=== PATIENT | female | born 1985 | race Caucasian/White ===

== ENCOUNTER → 2023-02-10 | Outpatient (CLI) | payer OTHER, SELFPAY ==
--- NOTE | 2023-02-10 13:05 | US_ITS ---
EXAM: US SOFT TISSUES HEAD AND NECK, THYROID CLINICAL INDICATION: GOITER TECHNIQUE: Greyscale and color doppler imaging was performed of the thyroid gland. COMPARISON: No relevant prior studies available. FINDINGS: LEFT THYROID LOBE: The left thyroid lobe measures 6.1 x 1.9 x 1.8 cm. There is a 1.1 cm left thyroid nodule. This nodule is solid or almost completely solid, hyperechoic or isoechoic, [id number], ill-defined and contains no echogenic foci. TI-RADS points: 3. TI-RADS category: TR3. This nodule is mildly suspicious but no FNA or follow-up is necessary given the small size of this nodule. There is a 0.6 cm left thyroid nodule. This nodule is solid or almost completely solid, hyperechoic or isoechoic, ijfij-kyuo-bzkp, smoothly marginated and contains no echogenic foci. TI-RADS points: 3. TI-RADS category: TR3. This nodule is mildly suspicious but no FNA or follow-up is necessary given the small size of this nodule. There is a 1.6 cm left thyroid nodule. This nodule is solid or almost completely solid, hyperechoic or isoechoic, [id number], ill-defined and contains no echogenic foci. TI-RADS points: 3. TI-RADS category: TR3. This nodule is mildly suspicious. Recommend follow-up thyroid ultrasounds at 1, 3 and 5 years. RIGHT THYROID LOBE: The right thyroid lobe measures 5.7 x 2.8 x 2.0 cm. There is a 1.1 cm right thyroid nodule. This nodule is solid or almost completely solid, hyperechoic or isoechoic, atnyy-[id number], ill-defined and contains no echogenic foci. TI-RADS points: 3. TI-RADS category: TR3. This nodule is mildly suspicious but no FNA or follow-up is necessary given the small size of this nodule. There is an additional 1.1 cm right thyroid nodule. This nodule is solid or almost completely solid, hyperechoic or isoechoic, [id number], ill-defined and contains no echogenic foci. TI-RADS points: 3. TI-RADS category: TR3. This nodule is mildly suspicious but no FNA or follow-up is necessary given the small size of this nodule. There is a 2.1 cm right thyroid nodule. This nodule is mixed cystic and solid, very hypoechoic, bndyg-bwme-[id number], smoothly marginated and contains no echogenic foci. TI-RADS points: 4. TI-RADS category: TR4. This nodule is moderately suspicious. Recommend FNA evaluation. There is a 1.7 cm right thyroid nodule. This nodule is solid or almost completely solid, hyperechoic or isoechoic, [id number]-[id number], ill-defined and contains no echogenic foci. TI-RADS points: 3. TI-RADS category: TR3. This nodule is mildly suspicious. Recommend follow-up thyroid ultrasounds at 1, 3 and 5 years. ISTHMUS: The thyroid isthmus measures 6 mm. There is an isthmus nodule measuring 7 mm. This nodule is solid or almost completely solid, hyperechoic or isoechoic, byprj-kinh-ecfh, ill-defined and contains no echogenic foci. TI-RADS points: 3. TI-RADS category: TR3. This nodule is mildly suspicious but no FNA or follow-up is necessary given the small size of this nodule. US/Thyroid IMPRESSION: 1. Thyroid goiter. 2. Recommend FNA of the 2.1 cm right-sided thyroid nodule 3. If definitive management is not performed, follow-up thyroid ultrasound at one, 3, and 5 years is recommended in relation to the 1.6 cm left-sided thyroid nodule and 1.7 cm right-sided nodule. Although many of the other nodules are mildly suspicious, no specific follow-up recommended is recommended based on the size of those nodules. Electronically Signed: Asif Sheets DO at 0:03 EST ,
== END | disposition home or self-care (01) ==
LOC: US 13:02
PROVIDERS: PCP Family Medicine; Visit Provider Family Medicine
DX: E04.2 Nontoxic multinodular goiter (principal)
CPT/HCPCS: 76536

== ENCOUNTER → 2023-04-07 | Outpatient (CLI) | payer OTHER, SELFPAY ==
--- NOTE | 2023-04-07 09:00 | FLU_PTH ---
PATHOLOGY RESULTS PATIENT: NAI LINDSEY LOC: LAB U#:[id number] AGE/SX: 37/F ROOM: RE04/07/[address]: Dr. Kannan Carrillo MD : [id number] BED: DIS: 04/07/2023 SPEC #: [id number] RECD: 04/07/23 13:48 STATUS: TONY JAI #: [id number] MARIA LUZ: 04/07/23 09:[address]: Kannan Carrillo DEPT: CYTOLOGY RECD BY: Deja Magana ENTERED: 04/10/23 09:27 SP TYPE: Fluid OTHR DR: Chika Ko DO Tissues: Thyroid gland, NOS Thyroid gland, NOS Thyroid gland, NOS Procedures: Special Stain Group II Surgery Specimen Level IV Cytospin Fluid Cytology Other HEADER OPERATION: Fine needle aspiration of right-sided thyroid nodule PRE-OP DIAGNOSIS: Right-sided thyroid nodule TISSUE SUBMITTED: A - Right thyroid nodule fluid, B - Right thyroid nodule fluid, C - Right thyroid nodule x4 slides DIAGNOSIS CYTOLOGY A. Right thyroid nodule fluid, fine needle aspiration (cytospin and cell block): Nondiagnostic specimen. (Kerkhoven Category I). Consistent with cyst contents. See comment. B. Right thyroid nodule fluid, fine needle aspiration (cytospin and cell block): Nondiagnostic specimen. (Kerkhoven Category I). See comment. C. Right thyroid nodule, fine needle aspiration (smears): Nondiagnostic specimen. (Kerkhoven Category I). See comment. SJ:luke 04/11/2023 COMMENT A. The specimen predominantly consists of macrophages. B. The specimen consists of a few macrophages. C. Adequate number of well-preserved follicular cells are not seen. Correlation with clinical, radiologic findings and appropriate follow up are necessary. Repeat FNA is suggested if clinically indicated. The Kerkhoven System for thyroid diagnostic categorization was used in the evaluation of this case. Case has been reviewed in consultation with Dr. Hoffman who concurs with the above diagnosis. IDC:AM CYTOLOGY STUDY Slides are reviewed. CYTOLOGY GROSS A - Received is 3 ml of red cloudy fluid labeled with the patient's name and and designated per the requisition as right thyroid nodule. Submitted for cytology preparation including cell block. B - Received is 30 ml of red cloudy fluid labeled with the patient's name and and designated per the requisition as right thyroid nodule. Submitted for cytology preparation including cell block. C - Received are four smears labeled with the patient's name and designated per the requisition as right thyroid nodule. Submitted for staining. / luke 04/10/2023 TC: cannot code CPT: 16176 x3, 96586 x2
--- OUTSIDE RECORDS SUMMARY | 2023-04-07 10:18 | XMS RPT_ITS | CCD ---
Author Name Unknown Address [address] [facility] [place] [address] Organization [facility] Care Team Providers Care Wire Repairer Name Role Phone Theodore NIÑO, Raeann Lopez Primary Care Provider Allergies Allergy Classification Reported Allergen(s) Allergy Type Date of Onset Reaction(s) Facility (7 sources) Sulfonamides (Antibiotic) Drug Allergy 2 Hives, Swelling [facility] Work Phone: (7 sources) Tetracycline Drug Allergy 2 Hives, Swelling [facility] Work Phone: Medications Current Medications Medication Drug Class(es) Dates Sig (Normalized) Sig (Original) cephalexin 500 mg oral capsule (1 source) Cephalosporin Antibacterial Start: 10-25-2021 End: 11-04-2021 take 1 capsule by mouth four times daily cephALEXin (KEFLEX) 500 mg capsule Indications: UTI symptoms , Bilateral non-suppurative otitis media Take 1 capsule by mouth four times daily for 10 days. 40 capsule 0 10/25/2021 11/04/2021 Active Completed/Discontinued Medications Medication Drug Class(es) Dates Sig (Normalized) Sig (Original) ciprofloxacin 250 mg oral tablet (1 source) Quinolone Antimicrobial Start: 10-25-2021 End: 10-25-2021 take 1 tablet by mouth twice daily ciprofloxacin HCl (CIPRO) 250 mg tablet Take 1 tablet by mouth twice daily for 3 days. 6 tablet 0 10/25/2021 10/25/2021 Discontinued Problems Problem Classification Problem Date Documented Date Episodic/Chronic Genitourinary symptoms and ill-defined conditions (1 source) Urinary symptoms ; Translations: [Unspecified symptoms and signs involving the genitourinary system] Episodic Nervous system congenital anomalies (7 sources) Neurofibromatosis type 1; Translations: [Neurofibromatosis, type 1] Onset: 06-24-2021 06-24-2021 Chronic Other nutritional; endocrine; and metabolic disorders (2 sources) H/O: thyroid disorder; Translations: [Personal history of other endocrine, nutritional and metabolic disease] Episodic Other screening for suspected conditions (not mental disorders or infectious disease) (4 sources) Patient encounter status; Translations: [Encounter for screening for lipoid disorders] Episodic Otitis media and related conditions (1 source) Non-suppurative otitis media; Translations: [Unspecified nonsuppurative otitis media, bilateral] Episodic Thyroid disorders (10 sources) Thyroid nodule; Translations: [Nontoxic single thyroid nodule] Onset: 06-24-2021 06-24-2021 Chronic Results Test Name Value Interpretation Reference Range Facil ity Vital Signs Date Time Vital Sign Value Performing Clinician Aba gallegos 10-25-2021 11:11-0400 Body temperature 97.7 [degF] Sierra Botello MILL SUPERVISOR.REAL PROPERTY APPRAISER Work Phone: [facility] 10-25-2021 11:11-0400 Body weight 87.09 kg Sierra Botello MILL SUPERVISOR.REAL PROPERTY APPRAISER Work Phone: [facility] 10-25-2021 11:11-0400 Diastolic blood pressure 70 mm[Hg] Sierra Botello MILL SUPERVISOR.REAL PROPERTY APPRAISER Work Phone: [facility] 10-25-2021 11:11-0400 Heart rate 90 /min Sierra Botello MILL SUPERVISOR.REAL PROPERTY APPRAISER Work Phone: [facility] 10-25-2021 11:11-0400 Respiratory rate 16 /min Sierra Botello MILL SUPERVISOR.REAL PROPERTY APPRAISER Work Phone: [facility] 10-25-2021 11:11-0400 SaO2% (BldA) [Mass fraction] 97 % Sierra Botello MILL SUPERVISOR.REAL PROPERTY APPRAISER Work Phone: [facility] 10-25-2021 11:11-0400 Systolic blood pressure 114 mm[Hg] Sierra Botello MILL SUPERVISOR.REAL PROPERTY APPRAISER Work Phone: [facility] 07-23-2021 13:59-0400 [facility].TURNING SANDER TENDER Work Phone: [facility] 07-23-2021 13:59-0400 Body weight 86.36 kg Jayde [place] MILL SUPERVISOR.TURNING SANDER TENDER Work Phone: [facility] 07-23-2021 13:59-0400 Diastolic blood pressure 60 mm[Hg] Jayde Sukumar MILL SUPERVISOR.TURNING SANDER TENDER Work Phone: [facility] 07-23-2021 13:59-0400 Systolic blood pressure 122 mm[Hg] Jayde Sukumar MILL SUPERVISOR.TURNING SANDER TENDER Work Phone: [facility] 06-24-2021 12:58-0400 Body weight 85.73 kg Sierra Botello MILL SUPERVISOR.REAL PROPERTY APPRAISER Work Phone: [facility] 06-24-2021 12:58-0400 Diastolic blood pressure 80 mm[Hg] Sierra Botello MILL SUPERVISOR.REAL PROPERTY APPRAISER Work Phone: [facility] 06-24-2021 12:58-0400 Heart rate 76 /min Sierra Botello MILL SUPERVISOR.REAL PROPERTY APPRAISER Work Phone: [facility] 06-24-2021 12:58-0400 Respiratory rate 16 /min Sierra Botello MILL SUPERVISOR.REAL PROPERTY APPRAISER Work Phone: [facility] 06-24-2021 12:58-0400 Systolic blood pressure 112 mm[Hg] Sierra Botello MILL SUPERVISOR.REAL PROPERTY APPRAISER Work Phone: [facility] Encounters Encounter Date Encounter Type Care Provider Facility Start: 10-25-2021 End: 10-25-2021 Patient encounter procedure Sierra Botello MILL SUPERVISOR.REAL PROPERTY APPRAISER Work Phone: [facility] Procedures Date Procedure Procedure Detail Performing Clinician Start: 10-25-2021 Urnls dip stick/tabl et rgnt auto w/o microscopy Sierra Botello MILL SUPERVISOR.REAL PROPERTY APPRAISER Work Phone: Start: 06-25-2021 Us soft tissue head & neck real time imge docm Sierra Botello APRN.RE[employer] PROPERTY APPRAISER Work Phone: Start: 06-24-2021 Adult depression screening assessment Sierra Botello APRN.REAL PROPERTY APPRAISER Work Phone: Plan of Treatment Date Care Activity Detail Author Start: 07-23-2026 HPV TESTING HPV TESTING [facility] Start: 07-23-2026 PAP TESTING PAP TESTING [facility] Start: 06-24-2022 Adult depression scr eening assessment DEPRESSION SCREENING [facility] Start: 06-24-2022 COVID-19 VACCINE (#1) COVID-19 VACCI NE (#1) [facility] Payers Date Payer Category Payer Private Health Insurance [employer] A ETNA CHOICE POS II [id number] 2021-Present [phone] [address] [place] [address] POS [id number] 2021 Private Health Insurance [employer] A ETNA CHOICE POS II [id number] 2021-Present [phone] [address] [place] [address] POS [id number] Social History Date Type Detail Facility Start: 06-24-2021 End: 10-25-2021 Tobacco smoking status NHIS Never smoked tobacco [facility] Work Phone: Start: 06-24-2021 End: 10-25-2021 Tobacco use and exposure Smokeless tobacco non-user [facility] Work Phone: Start: 06-24-2021 End: 10-25-2021 Alcohol intake Current drinker of alcohol (finding) [facility] Start: 06-24-2021 End: 10-25-2021 Alcohol intake [facility] Start: 1985 Sex Assigned At Not on file [facility] Start: 06-14-2021 End: 10-25-2021 Exposure to SARS-CoV-2 (event) Not sure [facility] Work Phone: Start: 1985 Sex Assigned At Female [facility] Clinical Notes 06-24-2021 to 10-25-2021 Sierra Botello APRN.REAL PROPERTY APPRAISER - 10/25/2021 11:15 AM EDTTelephone Encounter - Raina Monique RN - 10/05/2021 11:06 AM EDTTelephone Encounter - Raina Monique RN - 10/05/2021 10:08 AM EDT Note Date & Type Note Facility 10-25-2021 Note HNO ID: [id number] Author: Sierra Botello APRN.REAL PROPERTY APPRAISER Service: ? Author Type: Nurse Specialist Type: Progress Notes Filed: 10/25/2021 11:50 AM Note Text: SSUBJECTIVE: HEPATITIS B(1 of 3 - 3-dose series) Never done HPI Nai Nair is a 35 year old female. PMH significant for ACTIVE PROBLEM LIST Neurofibromatosis, Type 1 (Hcc) Multiple Thyroid Nodules Presents today regarding UTI symptoms. Dysuria:yes Urgency:yes Frequency:yes Separately reports children are all sick. She states she is checked her self for COVID with a home test and states she is negative. Notes bilateral ear pain. Currently without sore throat or other upper respiratory complaints. Review of Systems HENT: Positive for ear pain. Genitourinary: Positive for dysuria, frequency and urgency. Objective BP 114/70 Pulse 90 Temp 36.5 ?C (97.7 ?F) Resp 16 Wt 87.1 kg (192 lb) LMP 07/13/2021 SpO2 97% BMI 30.99 kg/m? Physical Exam Vitals and nursing note reviewed. Constitutional: Appearance: Normal appearance. HENT: Head: Normocephalic and atraumatic. Right Ear: Ear canal normal. Tympanic membrane is erythematous. Left Ear: Ear canal normal. Tympanic membrane is erythematous. Nose: Nose normal. Mouth/Throat: Lips: [place]. Mouth: Mucous membranes are moist. Pharynx: Oropharynx is clear. Eyes: Conjunctiva/sclera: Conjunctivae normal. Cardiovascular: Rate and Rhythm: Normal rate and regular rhythm. Heart sounds: Normal heart sounds. Pulmonary: Effort: Pulmonary effort is normal. Breath sounds: Normal breath sounds. Neurological: Mental Status: She is alert. ALLERGIES Allergen Reactions Sulfa (Sulfonamide * Hives, Swelling Tetracycline Hives, Swelling pseudoephed/acetaminophen/cpm (BOBBY-SELTZER PLUS COLD ORAL) Take by mouth. PAST MEDICAL HISTORY Diagnosis Date Neurofibromatosis, type 1 (HCC) Thyroid nodule Social History Tobacco Use Smoking status: Never Smokeless tobacco: Never Vaping Use Vaping Use: Never used Substance Use Topics Alcohol use: Yes Alcohol/week: 4.0 standard drinks Types: 4 Glasses of Wine (5oz) per week Drug use: Never ASSESSMENT/PLAN: 1. UTI symptoms - ICD9: 788.99, ICD10: R39.9 (primary diagnosis) - UA DIP, URINE (POC) - URINE CULTURE - CEPHALEXIN 500 MG CAPSULE 2. Bilateral non-suppurative otitis media - ICD9: 381.4, ICD10: H65.93 - CEPHALEXIN 500 MG CAPSULE She reports all of her children are sick. Unknown illness. She reports negative COVID test at home. Urinary symptoms. Endorse supportive care. We will treat with cephalexin which will cover both concerns. She will let us know if not feeling improved. Sierra Botello APRN.[facility] 10-25-2021 History of Presen t illness Narrative SSUBJECTIVE: HEPATITIS B(1 of 3 - 3-dose series) Never done HPI Nai Nair is a 35 year old female. PMH significant for ACTIVE PROBLEM LIST Neurofibromatosis, Type 1 (Hcc) Multiple Thyroid Nodules Presents today regarding UTI symptoms. Dysuria:yes Urgency:yes Frequency:yes Separately reports children are all sick. She states she is checked her self for COVID with a home test and states she is negative. Notes bilateral ear pain. Currently without sore throat or other upper respiratory complaints. Review of Systems HENT: Positive for ear pain. Genitourinary: Positive for dysuria, frequency and urgency. Objective BP 114/70 Pulse 90 Temp 36.5 C (97.7 F) Resp 16 Wt 87.1 kg (192 lb) LMP 07/13/2021 SpO2 97% BMI 30.99 kg/m Physical Exam Vitals and nursing note reviewed. Constitutional: Appearance: Normal appearance. HENT: Head: Normocephalic and atraumatic. Right Ear: Ear canal normal. Tympanic membrane is erythematous. Left Ear: Ear canal normal. Tympanic membrane is erythematous. Nose: Nose normal. Mouth/Throat: Lips: [place]. Mouth: Mucous membranes are moist. Pharynx: Oropharynx is clear. Eyes: Conjunctiva/sclera: Conjunctivae normal. Cardiovascular: Rate and Rhythm: Normal rate and regular rhythm. Heart sounds: Normal heart sounds. Pulmonary: Effort: Pulmonary effort is normal. Breath sounds: Normal breath sounds. Neurological: Mental Status: She is alert. ALLERGIES Allergen Reactions Sulfa (Sulfonamide * Hives, Swelling Tetracycline Hives, Swelling pseudoephed/acetaminophen/cpm (BOBBY-SELTZER PLUS COLD ORAL) Take by mouth. PAST MEDICAL HISTORY Diagnosis Date Neurofibromatosis, type 1 (HCC) Thyroid nodule Social History Tobacco Use Smoking status: Never Smokeless tobacco: Never Vaping Use Vaping Use: Never used Substance Use Topics Alcohol use: Yes Alcohol/week: 4.0 standard drinks Types: 4 Glasses of Wine (5oz) per week Drug use: Never ASSESSMENT/PLAN: 1. UTI symptoms - ICD9: 788.99, ICD10: R39.9 (primary diagnosis) - UA DIP, URINE (POC) - URINE CULTURE - CEPHALEXIN 500 MG CAPSULE 2. Bilateral non-suppurative otitis media - ICD9: 381.4, ICD10: H65.93 - CEPHALEXIN 500 MG CAPSULE She reports all of her children are sick. Unknown illness. She reports negative COVID test at home. Urinary symptoms. Endorse supportive care. We will treat with cephalexin which will cover both concerns. She will let us know if not feeling improved. Sierra Botello APRN.REAL PROPERTY APPRAISER documented in this encounter [facility] 10-05-2021 Miscellaneous Notes Patient returned call. Patient notified of [employer]'s message. Stated understanding and all questions were answered. Provided central scheduling [phone] contact. Encounter closed. Called patient's home/cell# at [phone], left voice message to call office at [phone], and ask to speak to the nurse. Can you please contact patient and let her know I received the report of the prior thyroid ultrasound. The report of prior ultrasound is different as it is mentioning two right thyroid nodules and 1 left thyroid nodule. Looking at the images of the prior thyroid ultrasound would help. I recommend to repeat the thyroid ultrasound in 6 month interval (December 2021). Please assist with scheduling Marysol Pena MD Thyroid US on your desk for review from [facility]. documented in this encounter [facility] 10-04-2021 Note HNO ID: [id number] Author: Marysol Pena MD Service: ? Author Type: Physician Type: Progress Notes Filed: 10/04/2021 1:23 PM Note Text: Endocrinology Initial Assessment Nai Nair is here for a consultation upon the request of PCP regarding: thyroid nodule Documentation supporting sharing your findings and recommendations via the shared medical record or via the mail. PCP is MD Raeann Reed [address] [place] [address] History of Present Illness Nai Nair is a 35 year old female with PMH of NF-1 and thyroid nodules who presents today for evaluation of thyroid disease. Patient recently moved to [place] from [place]. Diagnosed with thyroid disease ~2019 after a provider noted enlargement in the neck. Blood work was normal and thyroid ultrasound revealed multiple thyroid nodules. She was told to repeat thyroid ultrasound in 1 year interval. Had thyroid ultrasound 06/25/2021 with findings of bilateral heterogenous thyroid gland with multiple thyroid nodules: * A 2.7-cm mixed cystic and solid in the right thyroid lobe (TR2) * A 9 mm solid isoechoic nodule on the left thyroid lobe (TR3) * A 1.2-cm hyperechoic nodule in the inferior left thyroid lobe (TR3) Reports fatigue and weight gain (>30 pounds over the last year). She had 3 pregnancies back to back. FH of thyroid disease: mother has mamie's thyroiditis, sister has thyroid disease History of ionizing radiation to the head, neck or chest? no Biotin: none Past History, Medications, Allergies PAST MEDICAL HISTORY Diagnosis Date - Neurofibromatosis, type 1 (HCC) - Thyroid nodule PAST SURGICAL HISTORY Procedure Laterality Date - BREAST AUGMENTATION WITH IMPLANT - CERVIX UTERI CONIZA LP ELCTRO EXCI - SECTION HX No current outpatient medications on file. No current facility-administered medications for this visit. ALLERGIES Allergen Reactions - Sulfa (Sulfonamide * Hives, Swelling - Tetracycline Hives, Swelling FAMILY HISTORY Problem Relation Age of Onset - Colon Cancer Mother - Leukemia Father - Systemic Lupus Erythematosus Sister Social History Tobacco Use - Smoking status: Never Smoker - Smokeless tobacco: Never Used Vaping Use - Vaping Use: Never used Substance Use Topics - Alcohol use: Yes Alcohol/week: 4.0 standard drinks Types: 4 Glasses of Wine (5oz) per week - Drug use: Never Review of Systems Answers for HPI/ROS submitted by the patient on 10/04/2021 Fatigue: Yes Night Sweats: No Recent Unintentional Weight Change: Yes Skin Color Changes: No Post-Nasal Drip: No Thyroid Pain (lower neck): No Trouble Swallowing: No Vision Disturbance: No Chest Pain: No Leg Swelling: No Blood Clots?: No Leg Pain while walking?: No Difficulty Breathing?: No Heartburn: Yes Nausea: No Vomiting?: No Diarrhea: No Constipation: No Abdominal Pain: No Bone Pain?: No Muscle Aches: No Muscle Weakness: No Joint Pain or Stiffness: No Headaches: No Dizziness: No Numbness?: No Urgency to Urinate?: No Increased Urination?: No Slow or Small Urine Stream?: No Are your menstrual cycles regular?: Yes Are your menstrual cycles irregular?: No Have your menstrual cycles stopped?: No Flushing?: No Hot Flashes?: Yes Increased Thirst: Yes Change in Body Hair?: Yes Cold Intolerance: No Heat Intolerance?: Yes Physical examination GENERAL: Well nourished, well hydrated, in no distress and oriented x 3 COMMUNICATION: Hearing: normal; VOICE: normal EYES: no thyroid eye signs and normal conjunctiva NECK: +goiter visible Previous Laboratory Results Component Latest Ref Rng AND Units 06/24/2021 Glucose 74 - 99 mg/dL 88 BUN 7 - 21 mg/dL 15 Creatinine 0.58 - 0.96 mg/dL 0.80 Sodium 136 - 144 mmol/L 139 Potassium 3.7 - 5.1 mmol/L 4.1 Chloride 97 - 105 mmol/L 101 CO2 22 - 30 mmol/L 25 Anion Gap 9 - 18 mmol/L 13 Calcium 8.5 - 10.2 mg/dL 10.0 eGFR >=60 mL/min/1.73m? 99 TSH 0.270 - 4.200 mIU/L 1.390 Imaging: * * *Final Report* * * DATE OF EXAM: Jun ?2021 11:33AM ? [facility] ? 1048 ?- ?US THYROID/PARATHYROID ?/ PROCEDURE REASON: History of thyroid nodule ?? ? * * * * Physician Interpretation * * * * ?EXAMINATION: ?THYROID ULTRASOUND CLINICAL HISTORY: History of thyroid nodules TECHNIQUE: ?Sonography and Doppler imaging of the thyroid was performed. ? Images were obtained and stored in a permanent archive. MQ: ?UST_1 COMPARISON: There are no prior relevant examinations available for comparison within the [facility] Imaging Archives. RESULT: Right Lobe: ?5.6 x 2.3 x 2.0 cm; heterogeneous echogenicity, expected vascular flow. Left Lobe: ?5.2 x 1.9 x 1.7 cm; heterogeneous echogenicity, expected vascular flow. Isthmus: 0.50 cm The most suspicious thyroid nodule(s) (up to four) as below: NODULE 1: Location: Mid to inferi (more content not included)... [facility] 10-04-2021 Instructions Marysol Pena MD - 10/04/2021 1:23 PM EDT Thyroid ultrasound documented in this encounter [facility] 10-04-2021 History of Presen t illness Narrative Endocrinology Initial Assessment Nai Nair is here for a consultation upon the request of PCP regarding: thyroid nodule Documentation supporting sharing your findings and recommendations via the shared medical record or via the mail. PCP is MD Raeann Reed [address] [place] [address] History of Present Illness Nai Nair is a 35 year old female with PMH of NF-1 and thyroid nodules who presents today for evaluation of thyroid disease. Patient recently moved to [place] from [place]. Diagnosed with thyroid disease ~2019 after a provider noted enlargement in the neck. Blood work was normal and thyroid ultrasound revealed multiple thyroid nodules. She was told to repeat thyroid ultrasound in 1 year interval. Had thyroid ultrasound 06/25/2021 with findings of bilateral heterogenous thyroid gland with multiple thyroid nodules: * A 2.7-cm mixed cystic and solid in the right thyroid lobe (TR2) * A 9 mm solid isoechoic nodule on the left thyroid lobe (TR3) * A 1.2-cm hyperechoic nodule in the inferior left thyroid lobe (TR3) Reports fatigue and weight gain (>30 pounds over the last year). She had 3 pregnancies back to back. FH of thyroid disease: mother has mamie's thyroiditis, sister has thyroid disease History of ionizing radiation to the head, neck or chest? no Biotin: none Past History, Medications, Allergies PAST MEDICAL HISTORY Diagnosis Date Neurofibromatosis, type 1 (HCC) Thyroid nodule PAST SURGICAL HISTORY Procedure Laterality Date BREAST AUGMENTATION WITH IMPLANT CERVIX UTERI CONIZA LP ELCTRO EXCI SECTION HX No current outpatient medications on file. No current facility-administered medications for this visit. ALLERGIES Allergen Reactions Sulfa (Sulfonamide * Hives, Swelling Tetracycline Hives, Swelling FAMILY HISTORY Problem Relation Age of Onset Colon Cancer Mother Leukemia Father Systemic Lupus Erythematosus Sister Social History Tobacco Use Smoking status: Never Smoker Smokeless tobacco: Never Used Vaping Use Vaping Use: Never used Substance Use Topics Alcohol use: Yes Alcohol/week: 4.0 standard drinks Types: 4 Glasses of Wine (5oz) per week Drug use: Never Review of Systems Answers for HPI/ROS submitted by the patient on 10/04/2021 Fatigue: Yes Night Sweats: No Recent Unintentional Weight Change: Yes Skin Color Changes: No Post-Nasal Drip: No Thyroid Pain (lower neck): No Trouble Swallowing: No Vision Disturbance: No Chest Pain: No Leg Swelling: No Blood Clots?: No Leg Pain while walking?: No Difficulty Breathing?: No Heartburn: Yes Nausea: No Vomiting?: No Diarrhea: No Constipation: No Abdominal Pain: No Bone Pain?: No Muscle Aches: No Muscle Weakness: No Joint Pain or Stiffness: No Headaches: No Dizziness: No Numbness?: No Urgency to Urinate?: No Increased Urination?: No Slow or Small Urine Stream?: No Are your menstrual cycles regular?: Yes Are your menstrual cycles irregular?: No Have your menstrual cycles stopped?: No Flushing?: No Hot Flashes?: Yes Increased Thirst: Yes Change in Body Hair?: Yes Cold Intolerance: No Heat Intolerance?: Yes Physical examination GENERAL: Well nourished, well hydrated, in no distress and oriented x 3 COMMUNICATION: Hearing: normal; VOICE: normal EYES: no thyroid eye signs and normal conjunctiva NECK: +goiter visible Previous Laboratory Results Component Latest Ref Rng & Units 06/24/2021 Glucose 74 - 99 mg/dL 88 BUN 7 - 21 mg/dL 15 Creatinine 0.58 - 0.96 mg/dL 0.80 Sodium 136 - 144 mmol/L 139 Potassium 3.7 - 5.1 mmol/L 4.1 Chloride 97 - 105 mmol/L 101 CO2 22 - 30 mmol/L 25 Anion Gap 9 - 18 mmol/L 13 Calcium 8.5 - 10.2 mg/dL 10.0 eGFR >=60 mL/min/1.73m 99 TSH 0.270 - 4.200 mIU/L 1.390 Imaging: * * *Final Report* * * DATE OF EXAM: Jun 25 2021 11:33AM [facility] 1048 - US THYROID/PARATHYROID / PROCEDURE REASON: History of thyroid nodule * * * * Physician Interpretation * * * * EXAMINATION: THYROID ULTRASOUND CLINICAL HISTORY: History of thyroid nodules TECHNIQUE: Sonography and Doppler imaging of the thyroid was performed. Images were obtained and stored in a permanent archive. MQ: UST_1 COMPARISON: There are no prior relevant examinations available for comparison within the [facility] Imaging Archives. RESULT: Right Lobe: 5.6 x 2.3 x 2.0 cm; heterogeneous echogenicity, expected vascular flow. Left Lobe: 5.2 x 1.9 x 1.7 cm; heterogeneous echogenicity, expected vascular flow. Isthmus: 0.50 cm The most suspicious thyroid nodule(s) (up to four) as below: NODULE 1: Location: Mid to inferior right thyroid lobe Size: 2.7 x 1.8 x 1.2 cm Characteristics: Composition: Mixed cystic and solid, 1 point Echogenicity: Anechoic, 0 points Shape: [id number], 0 points Margin: Smooth, 0 points Echogenic foci (add points for all that apply): None, 0 points None, 0 points Internal vascularity: absent Interval growth: No prior available for comparison TI-RADS Category: TR2 ACR Recommendation: TI-RADS 2 Nodule. No follow-up or FNA is advised. NODULE 2: Location: Mid left thyroid lobe anterolaterally Size: 9 x 9 x 6 mm Characteristics: Composition: Solid or almost completely solid, 2 points Echogenicity: Isoechoic, 1 point Shape: [id number], 0 points Margin: Smooth, 0 points Echogenic foci (add points for all that apply): None, 0 points None, 0 points Internal vascularity: present Interval growth: No prior available for comparison TI-RADS Category: TR3 ACR Recommendation: TI-RADS 3 nodule. No FNA or further imaging is advised. NODULE 3: Location: Inferior left thyroid lobe Size: 1.2 x 1.0 x 0.7 cm Characteristics: Composition: Solid or almost completely solid, 2 points Echogenicity: Hyperechoic, 1 point Shape: [id number], 0 points Margin: Smooth, 0 points Echogenic foci (add points for all that apply): None, 0 points None, 0 points Internal vascularity: Trace Interval growth: No prior available for comparison TI-RADS Category: TR3 ACR Recommendation: TI-RADS 3 nodule. No FNA or further imaging is advised. Impression/Recommendations 35 year old female is currently evaluated for: ASSESSMENT/PLAN: 1. Multiple thyroid nodules - ICD9: 241.1, ICD10: E04.2 We reviewed the images by shared screen. Patient does not meet criteria for biopsy but needs thyroid nodule monitoring, especially 1.2-cm left thyroid nodule She will obtain records from [place] and we will review and determine time for next thyroid ultrasound I spent a total of 30 minutes on the date of the service which included preparing to see the patient, [id number] patient care, completing clinical documentation, obtaining and/or reviewing separately obtained history, performing a medically appropriate examination, counseling and educating the patient/family/caregiver, independently interpreting results (not separately reported) and communicating results to the patient/family/caregiver. Marysol Pena MD documented in this encounter [facility] 07-23-2021 Note HNO ID: [id number] Author: Jayde Patino APRN.TURNING SANDER TENDER Service: ? Author Type: Nurse Practitioner Type: Progress Notes Filed: 07/23/2021 2:26 PM Note Text: Nai is a 35 year old who presents for an annual gynecologic exam without complaints. Menses: cycles every 25-30 days and 5 days of flow. Contraception: vasectomy HPV vaccine: No Last Pap: normal HPV: N/A History of abnormal pap: Yes LEEP 6 yrs ago Last mammogram: never Sexually active: Yes Pain with intercourse: No Postcoital bleeding: No OB History T4 L4 SAB0 IAB0 Ectopic0 Multiple0 Live Births0 Manganese Heater History LMP: 07/13/2021, Having periods Age at Menarche: Age at First : Age at Menopause: Manganese Heater History Comments: Sexual Activity: Yes; Male Contraception: Vasectomy PAST MEDICAL HISTORY Diagnosis Date - Neurofibromatosis, type 1 (HCC) - Thyroid nodule PAST SURGICAL HISTORY Procedure Laterality Date - BREAST AUGMENTATION WITH IMPLANT - CERVIX UTERI CONIZA LP ELCTRO EXCI - SECTION HX FAMILY HISTORY Problem Relation Age of Onset - Colon Cancer Mother - Leukemia Father - Systemic Lupus Erythematosus Sister SOCIAL HISTORY Social History Tobacco Use - Smoking status: Never Smoker - Smokeless tobacco: Never Used Vaping Use - Vaping Use: Never used Substance Use Topics - Alcohol use: Yes Alcohol/week: 4.0 standard drinks Types: 4 Glasses of Wine (5oz) per week - Drug use: Never REVIEW OF SYSTEMS Abdomen: No abdominal pain, nausea, vomiting, diarrhea, or constipation. No bloating, early satiety, indigestion, or increased flatulence. Bladder: No dysuria, gross hematuria, urinary frequency, urinary urgency, +stress incontinence. Breast: No breast lumps, nipple d/c, overlying skin changes, redness or skin retraction. Allergies and current medication updated:Yes EXAM: Ht 5' 6 (1.68m) Wt 190 lb 6.4 oz (86.4kg) LMP 07/13/2021 BMI 30.75 kg/(m2). GENERAL: pleasant, female in no apparent distress HEENT: Normocephalic, atraumatic, mucus membranes moist and no lesions NECK: Supple, full range of motion, no adenopathy and thyroid normal DERMATOLOGY: Normal, without lesions, non-icteric and non-hirsute BREAST: soft, non-tender, symmetric, no dominant mass, normal nipple-areolar complex, no lymphadenopathy, no nipple discharge and surgical implants CHEST: Normal inspiratory effort ABDOMEN: soft, non-tender and no masses PELVIC: external genitalia normal, normal Bartholin's glands, urethra, [place]'s glands, no vulvar lesions, no cervical lesions, good vaginal support, physiologic discharge present, normal appearing perineal body and perianal region BIMANUAL: uterus normal size, shape and consistency, no adnexal masses and non-tender RECTOVAGINAL: deferred. NEURO: alert and oriented x3,exam grossly non-focal EXTREMITIES: normal ASSESSMENT/PLAN: 1) Health maintenance: Pap done with HPV. Mammogram starting age 40. Nutrition, exercise and routine health maintenance exams reviewed. Calcium/Vitamin D supplementation information provided. 2) Contraception: vasectomy. Contraceptive options reviewed and information provided. 3) STD screening: Declined STD check. 4) Follow up one year or sooner as needed Jayde Patino APRN.[facility] 07-23-2021 History of Presen t illness Narrative Nai is a 35 year old who presents for an annual gynecologic exam without complaints. Menses: cycles every 25-30 days and 5 days of flow. Contraception: vasectomy HPV vaccine: No Last Pap: normal HPV: N/A History of abnormal pap: Yes LEEP 6 yrs ago Last mammogram: never Sexually active: Yes Pain with intercourse: No Postcoital bleeding: No OB History T4 L4 SAB0 IAB0 Ectopic0 Multiple0 Live Births0 Manganese Heater History LMP: 07/13/2021, Having periods Age at Menarche: Age at First : Age at Menopause: Manganese Heater History Comments: Sexual Activity: Yes; Male Contraception: Vasectomy PAST MEDICAL HISTORY Diagnosis Date Neurofibromatosis, type 1 (HCC) Thyroid nodule PAST SURGICAL HISTORY Procedure Laterality Date BREAST AUGMENTATION WITH IMPLANT CERVIX UTERI CONIZA LP ELCTRO EXCI SECTION HX FAMILY HISTORY Problem Relation Age of Onset Colon Cancer Mother Leukemia Father Systemic Lupus Erythematosus Sister SOCIAL HISTORY Social History Tobacco Use Smoking status: Never Smoker Smokeless tobacco: Never Used Vaping Use Vaping Use: Never used Substance Use Topics Alcohol use: Yes Alcohol/week: 4.0 standard drinks Types: 4 Glasses of Wine (5oz) per week Drug use: Never REVIEW OF SYSTEMS Abdomen: No abdominal pain, nausea, vomiting, diarrhea, or constipation. No bloating, early satiety, indigestion, or increased flatulence. Bladder: No dysuria, gross hematuria, urinary frequency, urinary urgency, +stress incontinence. Breast: No breast lumps, nipple d/c, overlying skin changes, redness or skin retraction. Allergies and current medication updated:Yes EXAM: Ht 5' 6 (1.68m) Wt 190 lb 6.4 oz (86.4kg) LMP 07/13/2021 BMI 30.75 kg/(m^2). GENERAL: pleasant, female in no apparent distress HEENT: Normocephalic, atraumatic, mucus membranes moist and no lesions NECK: Supple, full range of motion, no adenopathy and thyroid normal DERMATOLOGY: Normal, without lesions, non-icteric and non-hirsute BREAST: soft, non-tender, symmetric, no dominant mass, normal nipple-areolar complex, no lymphadenopathy, no nipple discharge and surgical implants CHEST: Normal inspiratory effort ABDOMEN: soft, non-tender and no masses PELVIC: external genitalia normal, normal Bartholin's glands, urethra, [place]'s glands, no vulvar lesions, no cervical lesions, good vaginal support, physiologic discharge present, normal appearing perineal body and perianal region BIMANUAL: uterus normal size, shape and consistency, no adnexal masses and non-tender RECTOVAGINAL: deferred. NEURO: alert and oriented x3,exam grossly non-focal EXTREMITIES: normal ASSESSMENT/PLAN: 1) Health maintenance: Pap done with HPV. Mammogram starting age 40. Nutrition, exercise and routine health maintenance exams reviewed. Calcium/Vitamin D supplementation information provided. 2) Contraception: vasectomy. Contraceptive options reviewed and information provided. 3) STD screening: Declined STD check. 4) Follow up one year or sooner as needed Jayde Patino APRN.EVELYN documented in this encounter [facility] 06-29-2021 Miscellaneous Notes noted Patient notified of providers message and verbalized understanding. Patient would like to see Endocrinology for additional recommendations from their perspective. Encounter route to PSR to assist patient in scheduling Please let her know that labs are in acceptable range. Ultrasound of thyroid showed cystic lesions, no additional testing suggests biopsy is recommended at this time. If she is interested I can rerefer to endocrinology to see if any additional recommendations from their perspective. Component Latest Ref Rng & Units 06/24/2021 Glucose 74 - 99 mg/dL 88 BUN 7 - 21 mg/dL 15 Creatinine 0.58 - 0.96 mg/dL 0.80 Sodium 136 - 144 mmol/L 139 Potassium 3.7 - 5.1 mmol/L 4.1 Chloride 97 - 105 mmol/L 101 CO2 22 - 30 mmol/L 25 Anion Gap 9 - 18 mmol/L 13 Calcium 8.5 - 10.2 mg/dL 10.0 eGFR >=60 mL/min/1.73m 99 Total Cholesterol, Nonfasting <200 mg/dL 193 Triglycerides, Nonfasting <150 mg/dL 119 HDL Cholesterol, Nonfasting >39 mg/dL 85 LDL Cholesterol, Nonfasting <100 mg/dL 84 Non HDL Cholesterol, Nonfasting <130 mg/dL 108 VLDL Cholesterol, Nonfasting <30 mg/dL 24 Total Chol/HDL Ratio, Nonfasting <5.10 mg/dL 2.27 LDL/HDL Ratio, Nonfasting <2.54 mg/dL 0.99 TSH 0.270 - 4.200 mIU/L 1.390 US Thyroid/parathyroid: IMPRESSION: Bilateral heterogeneous thyroid gland with multiple nodules. Largest 3 measured and highest category reported. documented in this encounter [facility] 06-25-2021 Note HNO ID: [id number] Author: Yoselyn Araujo RDMS Service: ? Author Type: Customer Care Specialist Type: Progress Notes Filed: 06/25/2021 11:34 AM Note Text: Radiology Service Progress Note PATIENT NAME: Nai Nair DATE OF SERVICE: June 25, 2021 TIME: 11:34 AM PATIENT IDENTITY VERIFICATION COMPLETED USING TWO (2) IDENTIFIERS: Name and Date of confirmed by patient verbally. FALL SCREENING: Has the patient had 2 falls in the last year or 1 fall with injury or currently using an Ambulatory Assistive Device (Walker, Cane, Wheelchair, Crutches, etc.)? No PATIENT GENDER DATA: Female. status: : No status: N/A PATIENT RELEVANT IMPLANT DATA REVIEWED: Not Applicable RADIOLOGY DEPARTMENT: Ultrasound PERIPHERAL IV DATA: Not applicable SIGNED BY: Yoselyn Araujo RDMS RVT June 25, 2021 11:34 AM [facility] 06-25-2021 History of Presen t illness Narrative Radiology Service Progress Note PATIENT NAME: Nai Nair DATE OF SERVICE: June 25, 2021 TIME: 11:34 AM PATIENT IDENTITY VERIFICATION COMPLETED USING TWO (2) IDENTIFIERS: Name and Date of confirmed by patient verbally. FALL SCREENING: Has the patient had 2 falls in the last year or 1 fall with injury or currently using an Ambulatory Assistive Device (Walker, Cane, Wheelchair, Crutches, etc.)? No PATIENT GENDER DATA: Female. status: : No status: N/A PATIENT RELEVANT IMPLANT DATA REVIEWED: Not Applicable RADIOLOGY DEPARTMENT: Ultrasound PERIPHERAL IV DATA: Not applicable SIGNED BY: Yoselyn Araujo RDMS [facility] June 25, 2021 11:34 AM documented in this encounter [facility] 06-24-2021 Note HNO ID: [id number] Author: Sierra Botello APRN.REAL PROPERTY APPRAISER Service: ? Author Type: Nurse Specialist Type: Progress Notes Filed: 06/24/2021 1:53 PM Note Text: SUBJECTIVE: PAP TESTING Never done HPV TESTING Never done HPI Nai Nair is a 35 year old female. No prior CC visits in [facility]. Reports recently moved to area from [place]. Presents today to establish care with Dr Jaimes Previous PCP: [facility] [place], [place] SYSTEMS DESIGN ENGINEER: Dr Clark, [facility] She reports several recent pregnancies and no recent PCP visit. Last seen: about one year ago by SYSTEMS DESIGN ENGINEER Labwork: no recent ER/Hospitalization:no recent Outside records:no Reports prior history of thyroid nodule. States she is due for recheck ultrasound. Not treating thyroid currently. Notes her previous doctor may have checked for Mamie's thyroiditis, she is not sure. Notes her mother has Mamie's, sister has thyroid disease. Review of Systems Constitutional: Negative. Objective BP 112/80 Pulse 76 Resp 16 Wt 85.7 kg (189 lb) Physical Exam Vitals and nursing note reviewed. Constitutional: Appearance: Normal appearance. HENT: Head: Normocephalic and atraumatic. Eyes: Conjunctiva/sclera: Conjunctivae normal. Neck: Thyroid: Thyromegaly present. No thyroid mass. Vascular: Normal carotid pulses. No carotid bruit or JVD. Cardiovascular: Rate and Rhythm: Normal rate and regular rhythm. Pulses: Carotid pulses are 2+ on the right side and 2+ on the left side. Radial pulses are 2+ on the right side and 2+ on the left side. Heart sounds: Normal heart sounds. Pulmonary: Effort: Pulmonary effort is normal. Breath sounds: Normal breath sounds. Abdominal: General: Bowel sounds are normal. Palpations: Abdomen is soft. Musculoskeletal: Right lower leg: No edema. Left lower leg: No edema. Neurological: General: No focal deficit present. Mental Status: She is alert and oriented to person, place, and time. ALLERGIES Allergen Reactions - Sulfa (Sulfonamide * Hives, Swelling - Tetracycline Hives, Swelling No prescriptions on file. PAST MEDICAL HISTORY Diagnosis Date - Neurofibromatosis, type 1 (HCC) - Thyroid nodule PAST SURGICAL HISTORY Procedure Laterality Date - BREAST AUGMENTATION WITH IMPLANT - CERVIX UTERI CONIZA LP ELCTRO EXCI - SECTION HX Social History Tobacco Use - Smoking status: Never Smoker - Smokeless tobacco: Never Used Substance Use Topics - Alcohol use: Yes Alcohol/week: 4.0 standard drinks Types: 4 Glasses of Wine (5oz) per week - Drug use: Not on file FAMILY HISTORY Problem Relation Age of Onset - Colon Cancer Mother - Leukemia Father - Systemic Lupus Erythematosus Sister ASSESSMENT/PLAN: 1. History of thyroid nodule - ICD9: V12.29, ICD10: Z86.39 (primary diagnosis) - BASIC METABOLIC PNL - US THYROID/PARATHYROID - TSH BLD Add thyroperoxidase if TSH elevated 2. Screening for lipid disorders - ICD9: V77.91, ICD10: Z13.220 - LIPID PANEL, NONFASTING 3. Well woman exam with routine gynecological exam - ICD9: V72.31, ICD10: Z01.419 routine follow up needed; recent pregnancies - CONSULT TO SYSTEMS DESIGN ENGINEER 4. Encounter for screening for diabetes mellitus - ICD9: V77.1, ICD10: Z13.1 - BASIC METABOLIC PNL labs today, 6 - 12 mo follow up - establish care with Dr Jaimes schedule with elementary school music teacher Sierra Botello APRN.CNS Medical Decision Making: Problems: Low: Stable chronic illness Moderate: New problem with uncertain prognosis Data: Unique test(s) ordered: 3+ Medical Decision Making Level: 4 - Moderate [facility] 06-24-2021 Instructions Sierra Botello APRN.CNS - 06/24/2021 1:23 PM EDT We encourage the COVID-19 vaccine and influenza vaccine. If you decide to proceed with this you may get vaccinated at your local pharmacy or return to clinic for this. Check to see if your insurance covers Tdap vaccine and what location to get the vaccine. -usually best covered at your local pharmacy where you get prescriptions filled documented in this encounter [facility] 06-24-2021 History of Presen t illness Narrative SUBJECTIVE: PAP TESTING Never done HPV TESTING Never done HPI Nai Nair is a 35 year old female. No prior CC visits in [facility]. Reports recently moved to area from [place]. Presents today to establish care with Dr Jaimes Previous PCP: [facility] [place], [place] SYSTEMS DESIGN ENGINEER: Dr Clark, [facility] She reports several recent pregnancies and no recent PCP visit. Last seen: about one year ago by SYSTEMS DESIGN ENGINEER Labwork: no recent ER/Hospitalization:no recent Outside records:no Reports prior history of thyroid nodule. States she is due for recheck ultrasound. Not treating thyroid currently. Notes her previous doctor may have checked for Mamie's thyroiditis, she is not sure. Notes her mother has Mamie's, sister has thyroid disease. Review of Systems Constitutional: Negative. Objective BP 112/80 Pulse 76 Resp 16 Wt 85.7 kg (189 lb) Physical Exam Vitals and nursing note reviewed. Constitutional: Appearance: Normal appearance. HENT: Head: Normocephalic and atraumatic. Eyes: Conjunctiva/sclera: Conjunctivae normal. Neck: Thyroid: Thyromegaly present. No thyroid mass. Vascular: Normal carotid pulses. No carotid bruit or JVD. Cardiovascular: Rate and Rhythm: Normal rate and regular rhythm. Pulses: Carotid pulses are 2+ on the right side and 2+ on the left side. Radial pulses are 2+ on the right side and 2+ on the left side. Heart sounds: Normal heart sounds. Pulmonary: Effort: Pulmonary effort is normal. Breath sounds: Normal breath sounds. Abdominal: General: Bowel sounds are normal. Palpations: Abdomen is soft. Musculoskeletal: Right lower leg: No edema. Left lower leg: No edema. Neurological: General: No focal deficit present. Mental Status: She is alert and oriented to person, place, and time. ALLERGIES Allergen Reactions Sulfa (Sulfonamide * Hives, Swelling Tetracycline Hives, Swelling No prescriptions on file. PAST MEDICAL HISTORY Diagnosis Date Neurofibromatosis, type 1 (HCC) Thyroid nodule PAST SURGICAL HISTORY Procedure Laterality Date BREAST AUGMENTATION WITH IMPLANT CERVIX UTERI CONIZA LP ELCTRO EXCI SECTION HX Social History Tobacco Use Smoking status: Never Smoker Smokeless tobacco: Never Used Substance Use Topics Alcohol use: Yes Alcohol/week: 4.0 standard drinks Types: 4 Glasses of Wine (5oz) per week Drug use: Not on file FAMILY HISTORY Problem Relation Age of Onset Colon Cancer Mother Leukemia Father Systemic Lupus Erythematosus Sister ASSESSMENT/PLAN: 1. History of thyroid nodule - ICD9: V12.29, ICD10: Z86.39 (primary diagnosis) - BASIC METABOLIC PNL - US THYROID/PARATHYROID - TSH BLD Add thyroperoxidase if TSH elevated 2. Screening for lipid disorders - ICD9: V77.91, ICD10: Z13.220 - LIPID PANEL, NONFASTING 3. Well woman exam with routine gynecological exam - ICD9: V72.31, ICD10: Z01.419 routine follow up needed; recent pregnancies - CONSULT TO SYSTEMS DESIGN ENGINEER 4. Encounter for screening for diabetes mellitus - ICD9: V77.1, ICD10: Z13.1 - BASIC METABOLIC PNL labs today, 6 - 12 mo follow up - establish care with Dr Jaimes schedule with elementary school music teacher Sierra Botello APRN.CNS Medical Decision Making: Problems: Low: Stable chronic illness Moderate: New problem with uncertain prognosis Data: Unique test(s) ordered: 3+ Medical Decision Making Level: 4 - Moderate documented in this encounter [facility] Diagnosis History of thyroid nodule Personal history of other endocrine, metabolic, and immunity disorders [facility] Diagnosis Multiple thyroid nodules- Primary Nontoxic multinodular goiter [facility] Diagnosis Encounter for gynecological examination (general) (routine) without abnormal findings- Primary Well woman exam with routine gynecological exam Routine gynecological examination Screening for cervical cancer Screening for malignant neoplasm of the cervix Encounter for screening for human papillomavirus (HPV) Special screening examination for human papillomavirus (HPV) [facility] Diagnosis Multiple thyroid nodules Nontoxic multinodular goiter [facility]* Diagnosis UTI symptoms- Primary Other symptoms involving urinary system Bilateral non-suppurative otitis media Nonsuppurative otitis media, not specified as acute or chronic [facility] ([facility])* Diagnostic Procedure Only (Routine) - Authorized Specialty Diagnoses / Procedures Referred By Contkeiko t Referred To Contact US IMAGING Diagnoses History of thyroid nodule Procedures US THYROID/PARATHYROID US SOFT TISSUE HEAD & NECK REAL TIME IMGE DOC Sierra Botello APRN.CNS [address] [place] [address] Us Imaging Referral ID Status Reason Start Date Expiration Date Visits Requested Visits Authorized [id number] Authorized Auto-Generat ed Referral 06/24/2021 07/24/2022 1 1 * Consult, Test, Treat (Routine) - Pending Review Specialty Diagnoses / Procedures Referred By Contac t Referred To Contact Diagnoses Well woman exam with routine gynecological exam Procedures CONSULT TO SYSTEMS DESIGN ENGINEER OFFICE/OUTPATIENT [facility] MDM 60-74 MINUTES Sierra Botello APRN.REAL PROPERTY APPRAISER [address] [place] [address] Referral ID Status Reason Start Date Expiration Date Visits Requested Visits Authorized [id number] Pending Review PCP Requested Referral Auto-Generate d Referral 06/24/2021 06/24/2022 1 1 [facility])* Diagnostic Procedure Only (Routine) - Closed Specialty Diagnoses / Procedures Referred By Ana Cristina t Referred To Contact US IMAGING Diagnoses History of thyroid nodule Procedures US THYROID/PARATHYROID US SOFT TISSUE HEAD & NECK REAL TIME IMGE DOCSierra Wu APRN.REAL PROPERTY APPRAISER [address] [place] [address] Us Imaging Referral ID Status Reason Start Date Expiration Date V isits Requested Visits Authorized [id number] Closed Auto-Generate d Referral 06/24/2021 07/24/2022 1 1 [facility] for referral (narrative)* Diagnostic Procedure Only (Routine) - Pending Review Specialty Diagnoses / Procedures Referred By Contac t Referred To Contact US IMAGING Diagnoses Multiple thyroid nodules Procedures US THYROID/PARATHYROID US SOFT TISSUE HEAD & NECK REAL TIME IMGE DOCMarysol Vera MD [address] [facility], [address] [place] [address] Us Imaging Referral ID Status Reason Start Date Expiration Date Visits Requested Visits Authorized [id number] Pending Review Auto-Generat ed Referral 12/20/2021 11/04/2022 1 1 [facility] Reason for Referral Specialty Diagnoses / Procedures Referred By Contac t Referred To Contact Endocrinology Diagnoses Multiple thyroid nodules Procedures CONSULT TO ENDOCRINOLOGY OFFICE/OUTPATIENT [facility] MDM 60-74 MINUTES Sierra Botello, MILL SUPERVISOR.REAL PROPERTY APPRAISER [address] [place] [address] Referral ID Status Reason Start Date Expiration Date Visits Requested Visits Authorized [id number] Pending Review PCP Requested Referral 06/28/2021 06/28/2022 1 1 Summary Purpose Family History No Family History Records Found Advance Directives No Advanced Directives Records Found Additional Source Comments Source Comments (unrecognize d section and content) In the event this informatio n is protected by the Federal Confidentiality of Alcohol and Drug Abuse Patient Records regulations: The Federal rules restrict any use of the information to criminally investigate or prosecute any alcohol or drug abuse patient.[facility] the event this information is protected by the Federal Confidentiality of Alcohol and Drug Abuse Patient Records regulations: The Federal rules restrict any use of the information to criminally investigate or prosecute any alcohol or drug abuse patient.[facility] HospitalIn the event this information is protected by the Federal Confidentiality of Alcohol and Drug Abuse Patient Records regulations: The Federal rules restrict any use of the information to criminally investigate or prosecute any alcohol or drug abuse patient.[facility] Hospital[facility] the event this information is protected by the Federal Confidentiality of Alcohol and Drug Abuse Patient Records regulations: The Federal rules restrict any use of the information to criminally investigate or prosecute any alcohol or drug abuse patient.[facility] Hospital[facility] the event this information is protected by the Federal Confidentiality of Alcohol and Drug Abuse Patient Records regulations: The Federal rules restrict any use of the information to criminally investigate or prosecute any alcohol or drug abuse patient.[facility] Hospital[facility] the event this information is protected by the Federal Confidentiality of Alcohol and Drug Abuse Patient Records regulations: The Federal rules restrict any use of the information to criminally investigate or prosecute any alcohol or drug abuse patient.[facility] HospitalIn the event this information is protected by the Federal Confidentiality of Alcohol and Drug Abuse Patient Records regulations: The Federal rules restrict any use of the information to criminally investigate or prosecute any alcohol or drug abuse patient.[facility] Reason for Visit (unrecogniz ed section and content) Reason Comments Radiology US Specialty Diagnoses / Procedures Referred By Contac t Referred To Contact US IMAGING Diagnoses History of thyroid nodule Procedures US THYROID/PARATHYROID US SOFT TISSUE HEAD & NECK REAL TIME IMGE DOCM Sierra Botello, MILL SUPERVISOR.[employer] AP[employer] [address] [place] [address] Us Imaging Referral ID Status Reason Start Date Expiration Date V isits Requested Visits Authorized [id number] Closed Auto-Generate d Referral 06/24/2021 07/24/2022 1 1 Reason Comments Results, Lab and thyroid US Reason Comments Yearly Exam Specialty Diagnoses / Procedures Referred By Contac t Referred To Contact Diagnoses Well woman exam with routine gynecological exam Procedures CONSULT TO SYSTEMS DESIGN ENGINEER OFFICE/OUTPATIENT [facility] 60-74 MINUTES Sierra Botello, MILL SUPERVISOR.[employer] AP[employer] [address] [place] [address] Referral ID Status Reason Start Date Expiration Date Visits Requested Visits Authorized [id number] Pending Review PCP Requested Referral Auto-Generate d Referral 06/24/2021 06/24/2022 1 1 Reason Comments Thyroid Disease Specialty Diagnoses / Procedures Referred By Contac t Referred To Contact Endocrinology Diagnoses Multiple thyroid nodules Procedures CONSULT TO ENDOCRINOLOGY OFFICE/OUTPATIENT [facility] 60-74 MINUTES Sierra Botello, MILL SUPERVISOR.[employer] AP[employer] [address] [place] [address] Referral ID Status Reason Start Date Expiration Date Visits Requested Visits Authorized [id number] Pending Review PCP Requested Referral 06/28/2021 06/28/2022 1 1 Reason Comments Results Thyroid US Reason Comments UTI Earache Care Teams (unrecognized sec tion and content) Wire Repairer Relationship Specialty Start Date End Date Raeann Jaimes MD [address] [place] [address] PCP - General Internal Medicine 06/24/21 Wire Repairer Relationship Specialty Start Date End Date Raeann Jaimes MD [address] [place], [place] [id number] PCP - General Internal Medicine 06/24/21 Wire Repairer Relationship Specialty Start Date End Date Raeann Jaimes MD [address] [place], [place] [id number] PCP - General Internal Medicine 06/24/21 Wire Repairer Relationship Specialty Start Date End Date Raeann Jaimes MD [address] [place], [place] [id number] PCP - General Internal Medicine 06/24/21 INFORMATION SOURCE (unrecogn ized section and content) FOR RECORDS PERTAINING TO PATIENTS WHO ARE OR HAVE BEEN ENROLLED IN A CHEMICAL DEPENDENCY/SUBSTANCEABUSE PROGRAM, SOME INFORMATION MAY BE OMITTED. This clinical summary was aggregated from multiple sources. Caution should be exercised in using it in the provision of clinical care. This summary normalizes information from multiple sources, and as a consequence, information in this document may materially change the coding, format and clinical context of patient data. In addition, data may be omitted in some cases. CLINICAL DECISIONS SHOULD BE BASED ON THE PRIMARY CLINICAL RECORDS. [employer] provides no warranty or guarantee of the accuracy or completeness of information in this document.
[2023-04-07 11:55] LABS: Free T3 2.8 pg/mL (2.18-3.98); T4 Free Direct 0.85 ng/dL (0.76-1.46); Thyroid Stim Hormone (TSH) 1.18 uIU/mL (0.358-3.74)
[2023-04-10 15:07] LABS: Thyroglobulin Antibody < 1.0 IU/mL (0.0-0.9); Thyroid Peroxidase AB 261 IU/mL (0-34)
== END | disposition home or self-care (01) ==
PROVIDERS: PCP Family Medicine; Referring Provider Surgery; Visit Provider Surgery
DX: E04.1 Nontoxic single thyroid nodule (principal)
CPT/HCPCS: 36415; 84439; 84443; 84481; 86376; 86800; 88108; 88161; 88305; 88313

== ENCOUNTER → 2023-10-13 | Outpatient (CLI) | payer OTHER, SELFPAY ==
--- NOTE | 2023-10-13 15:24 | US_ITS ---
INDICATION: 6 month follow-up EXAMINATION: Ultrasound US Thyroid (eg thyroid, parathyroid, parotid) TECHNIQUE: Hutchison scale and color doppler imaging was performed of the thyroid gland. COMPARISON: February 10, 2023. FINDINGS: RIGHT THYROID LOBE: 5.6 x 2.7 x 2.1 cm. Heterogeneous echotexture with normal vascularity. Nodules: 1. Posterior mid 1.5 x 1.0 x 1.1 cm mostly solid hyperechoic nodule wider than tall with smooth margins and no calcifications, TI RAD 3, not significantly changed from February 10, 2023 when measured similarly 2. Mid 1.2 x 1.2 x 0.8 cm mixed cystic solid hypoechoic nodule wider than tall with smooth margins and no calcifications, TI RAD 3, not significantly changed from February 10, 2023 3. Inferior 1.1 x 1.0 1.0 cm mostly solid isoechoic nodule with smooth margins and no calcifications, TI RAD 3, not significantly changed from prior exam LEFT THYROID LOBE: 5.6 x 2.0 x 2.2 cm. Heterogeneous echotexture with normal vascularity. Nodules: 1. Inferior 1.4 x 1.3 x 0.9 cm mixed mostly solid isoechoic nodule wider than tall smooth margins and no calcification, TI RADS 3, not significantly changed from prior exam 2. Inferior 0.7 x 0.6 x 0.5 cm mixed cystic solid hypoechoic nodule wider than tall smooth margins and no calcifications, TI RAD 3, decreased in size from prior exam 3. Superior anterior 1.2 x 1.0 x 0.8 cm mixed cystic solid hypoechoic nodule wider than tall with smooth margins and no calcifications, TI RADS 3, not significantly changed from prior exam ISTHMUS: 0.5 cm. No thyroid nodules are present. US/Thyroid IMPRESSION: Multinodular goiter without significant interval change in multiple TI-RAD 3 nodules up to 1.5 cm in size. 2 year follow-up ultrasound is recommended per ACR TI RADS criteria. Electronically Signed: Anup Dominguez MD at 8:34 EDT ,
== END | disposition home or self-care (01) ==
LOC: US 15:23
PROVIDERS: PCP Family Medicine; Referring Provider Surgery; Visit Provider Surgery
DX: E04.1 Nontoxic single thyroid nodule (principal)
CPT/HCPCS: 76536

== ENCOUNTER → 2024-12-05 | Outpatient (CLI) | payer OTHER, SELFPAY | END | disposition home or self-care (01) | LOC: LABSPEC 12:04 | PROVIDERS: PCP Family Medicine; Visit Provider Family Medicine | DX: N39.0 Urinary tract infection, site not specified (principal) | CPT/HCPCS: 87086 ==

== ENCOUNTER → 2024-12-06 | Outpatient (CLI) | payer OTHER, SELFPAY ==
[2024-12-06 12:47] LABS: Hematocrit 41.3 % (37-47); Hemoglobin 14.2 g/dL (12.0-15.0); Mean Corp Hgb Conc 34.4 g/dL (32-36); Mean Corpuscular Volume 96.0 fL (81-99); Mean Platelet Vol. 10.8 fl (6.2-12.0); Platelet Count 185 K/mm3 (150-450); RBC Distribution Width CV 12.3 % (11.6-14.6); RBC Distribution Width SD 42.9 fl (35.1-43.9); Red Blood Count 4.30 M/mm3 (4.2-5.4); White Blood Count 4.8 K/mm3 (4.4-11.0)
[2024-12-06 13:10] LABS: AST(SGOT) 111 U/L (<=31); Alanine Aminotransfer ALT/SGPT 83 U/L (<=34); Albumin, Serum 4.4 g/dL (3.5-5.0); Alkaline Phosphatase 111 U/L (35-104); Anion Gap 12 (5-15); BUN 5 mg/dL (4-19); BUN/Creat Ratio 6.8 RATIO (10-20); Calcium,Total 9.7 mg/dL (7.6-11.0); Carbon Dioxide 25.3 mmol/L (21.0-32.0); Chloride 100 mmol/L (98-108); Cholesterol 191 mg/dL (<=200); Globulin 3.2 g/dL (2.2-4.2); Glucose 83 mg/dL (70-99); Low Density Lipoprotein Calc. 57 mg/dL; Potassium 4.9 mmol/L (3.3-5.1); Triglycerides 100 mg/dL; Very Low Density Lipoprotein 20 mg/dL (5-40); cholesterol:hdl ratio screen 1.68
== END | disposition home or self-care (01) ==
LOC: MFPLAB 09:34
PROVIDERS: PCP Family Medicine; Visit Provider Family Medicine
DX: Z13.220 Encounter for screening for lipoid disorders (principal); N39.0 Urinary tract infection, site not specified; E04.2 Nontoxic multinodular goiter; Z13.1 Encounter for screening for diabetes mellitus
CPT/HCPCS: 36415; 80053; 80061; 84439; 84443; 85027